=== PATIENT | female | born 1940 | race Caucasian/White ===

== ENCOUNTER 2018-07-28 19:41 | Emergency (ER) | payer OTHER, MEDICARE ==
[2018-07-28 19:59] VITALS: TEMP 97.8; BMI 30.7
[2018-07-28] MEDS ORDERED: METOCLOPRAMIDE HCL INJECTION 10 MG/2 ML VIAL IVPUSH ONE (20:22)
[2018-07-28] MEDS ORDERED: ACETAMINOPHEN 325 MG TABLET (FP) PO ONE (20:22)
[2018-07-28] MEDS ORDERED: SODIUM CHLORIDE 500 ML IV STA (20:22)
[2018-07-28] MEDS ORDERED: ACETAMINOPHEN 325 MG TABLET (FP) ONE (20:30)
[2018-07-28] MEDS ORDERED: METOCLOPRAMIDE HCL INJECTION 10 MG/2 ML VIAL ONE (20:31)
[2018-07-28 20:59] LABS: BASO % 0.5 % (0-2.0); EOS % 1.6 % (0-4.5); HEMATOCRIT 36.4 % (32.4-45.2); HEMOGLOBIN 12.2 GM/dl (10.7-15.3); LYMPH % 28.6 % (8-40); MCH 28.9 pg (25.7-33.7); MCHC 33.5 g/dl (32.0-36.0); MEAN CELL VOLUME 86.4 fl (80-96); MEAN PLT VOLUME 7.3 fl (7.5-11.1); MONO % 7.8 % (3.8-10.2); NEUT % 61.5 % (42.8-82.8); PLATELET COUNT 141 K/MM3 (134-434); RBC 4.21 M/mm3 (3.60-5.2); RDW 14.6 % (11.6-15.6); WHITE BLOOD COUNT 5.6 K/mm3 (4.0-10.8)
[2018-07-28 21:14] LABS: ACTIVATED PTT 28.2 SECONDS (25.2-36.5)
[2018-07-28 21:17] LABS: ALK PHOS 104 U/L (45-117); ANION GAP 5 MMOL/L (8-16); BLOOD UREA NITROGEN 20 mg/dl (7-18); CALCIUM 8.7 mg/dl (8.5-10); CHLORIDE 105 mmol/L (98-107); CO2 26 mmol/L (21-32); CREATININE 0.7 mg/dl (0.55-1.3); GLUCOSE,RANDOM 137 mg/dl (74-106); POTASSIUM 4.2 mmol/L (3.5-5.1); SGOT/AST 18 U/L (15-37); SGPT/ALT 8 U/L (13-61); SODIUM 136 mmol/L (136-145); TOT PROT 6.6 g/dl (6.4-8.2)
[2018-07-28 21:18] LABS: BILIRUBIN,TOTAL < 0.3 mg/dl (0.2-1)
[2018-07-28 21:19] LABS: INR 1.03 (0.82-1.09); PROTHROMBIN TIME (PATIENT) 11.5 SEC (10.2-13.0)
[2018-07-28 23:01] LABS: PH,URINE 5.5 (4.5-8); URINE APPEARANCE Clear; URINE BILIRUBIN Negative (NEGATIVE); URINE COLOR Yellow; URINE GLUCOSE (UA) Negative (NEGATIVE); URINE KETONE Negative (NEGATIVE); URINE LEUK ESTERASE TRACE (NEGATIVE); URINE NITRITE Negative (NEGATIVE); URINE PROTEIN Negative (NEGATIVE); URINE UROBILINOGEN 0.2 (0.2-1.0)
[2018-07-28 23:05] LABS: EPI CELLS NONE SEEN /HPF; URINE BACTERIA NONE SEEN /hpf (NEGATIVE); URINE RBC 0-2 /hpf (0-3)
--- NOTE | 2018-07-28 23:06 | PDOC ---
History of Present Illness - General History Source: Family Exam Limitations: Language Barrier (the daughter was translating due to a language barrier) - History of Present Illness Initial Comments: 07/28/18 23:16 The patient is a 78 year old female, with a significant past medical history of occasional falls and hypothyroidism (on medication) who presents to the emergency department with ecchymosis of the eyes. As per daughter, the patient fell around Friday/Friday. The patient is not a good historian, however, the patient states she has a headache, nausea, clear rhinorrhea, and has vomited this morning. As per daughter, she saw the right eye ecchymosis yesterday which has now spread to her left eye and nose. As per daughter, the patient has a history of staying up all night and sleeping throughout the day. As per daughter , the patient lives with her 2 sons and is in the process of getting her room renovated, and has boxes around her room causing her to fall. As per daughter, the patient went to [facility] today and was recommended to come to the ED for further evaluation and a CAT scan. The patient denies chest pain or shortness of breath. The patient denies fever, chills, diarrhea or constipation. The patient denies dysuria, frequency, urgency or hematuria. Allergies: NKDA Past surgical history: Knee replacement surgery Social history: None reported <Princess Dean - Last Filed: 07/28/18 23:15> <Ayleen Winslow - Last Filed: 07/28/18 23:23> - General Chief Complaint: Injury Stated Complaint: ECCHYMOSIS AND SWELLING TO FACE Time Seen by Provider: 07/28/18 20:13 Past History <Princess Dean - Last Filed: 07/28/18 23:15> - Past Medical History COPD: No HTN: Yes Thyroid Disease: Yes Other medical history: INSOMNIA, - Surgical History Appendectomy: Yes - Suicide/Smoking/Psychosocial Hx Smoking History: Never smoked Information on smoking cessation initiated: No Hx Alcohol Use: No Drug/Substance Use Hx: No <Ayleen Winslow - Last Filed: 07/28/18 23:23> - Past Medical History Allergies/Adverse Reactions: Allergies Allergy/AdvReac Type Severity Reaction Status Date / Time No Known Allergies Allergy Unverified 07/28/18 19:43 Home Medications: Ambulatory Orders Hydrochlorothiazide [Hctz -] 12.5 mg PO DAILY 07/28/18 Methimazole 5 mg PO DAILY 07/28/18 Metoprolol Succinate [Toprol Xl] 50 mg PO DAILY 07/28/18 Risperidone [Risperdal] 0.25 mg PO HS 07/28/18 Review of Systems - Review of Systems Able to Perform ROS?: Yes Comments:: 07/28/18 23:16 See HPI. All other systems reviewed and unremarkable All Other Systems: Reviewed and Negative <Princess Dean - Last Filed: 07/28/18 23:15> *Physical Exam - Vital Signs Last Vital Signs Temp Pulse Resp BP Pulse Ox 97.8 F 80 16 162/86 100 07/28/18 19:43 07/28/18 19:43 07/28/18 19:43 07/28/18 19:43 07/28/18 19:43 - Physical Exam Comments: 07/28/18 23:17 NAD (+) Bilateral eye bruise and left arm bruise. EOMI, DOMINGO MMM, OP WNL NCAT, no midline cervical tenderness RRR, nl s1/s2, no m/r/g CTABL, no w/r/r Soft, NTND (+) chronic lower extremity edema. WWP, gait, balance WNL, speech fluent, difficulties w/ multi-step commands and does not answer questions well, seems pleaseantly demented. Moving all 4, strength intact, CN intact. A&O x 1, mood/affect WNL. <Princess Dean - Last Filed: 07/28/18 23:15> - Vital Signs Last Vital Signs Temp Pulse Resp BP Pulse Ox 97.8 F 80 16 162/86 100 07/28/18 19:43 07/28/18 19:43 07/28/18 19:43 07/28/18 19:43 07/28/18 19:43 <Ayleen Winslow - Last Filed: 07/28/18 23:23> Moderate Sedation - Procedure Monitoring Vital Signs: Procedure Monitoring Vital Signs Temperature 97.8 F 07/28/18 19:43 Pulse Rate 80 07/28/18 19:43 Respiratory Rate 16 07/28/18 19:43 Blood Pressure 162/86 07/28/18 19:43 O2 Sat by Pulse Oximetry (%) 100 07/28/18 19:43 <Princess Dean - Last Filed: 07/28/18 23:15> - Procedure Monitoring Vital Signs: Procedure Monitoring Vital Signs Temperature 97.8 F 07/28/18 19:43 Pulse Rate 80 07/28/18 19:43 Respiratory Rate 16 07/28/18 19:43 Blood Pressure 162/86 07/28/18 19:43 O2 Sat by Pulse Oximetry (%) 100 07/28/18 19:43 <LondongracielaAyleen - Last Filed: 07/28/18 23:23> ED Treatment Course - LABORATORY CBC & Chemistry Diagram: 07/28/18 20:45 07/28/18 20:45 - ADDITIONAL ORDERS Additional order review: Laboratory Results 07/28/18 07/28/18 07/28/18 22:50 20:54 20:45 PT with INR INR PTT (Actin FS) Sodium Potassium Chloride Carbon Dioxide Anion Gap BUN Creatinine Creat Clearance w eGFR POC Glucometer 142 Random Glucose Calcium Total Bilirubin AST ALT Alkaline Phosphatase Creatine Kinase Troponin I < 0.03 Total Protein Albumin Urine Color Yellow Urine Appearance Clear Urine pH 5.5 Ur Specific [place] 1.020 Urine Protein Negative Urine Glucose (UA) Negative Urine Ketones Negative Urine Blood Negative Urine Nitrite Negative Urine Bilirubin Negative Urine Urobilinogen 0.2 Ur Leukocyte Esterase Trace H Urine RBC 0-2 Urine WBC 2-3 Ur Epithelial Cells None seen Urine Bacteria None seen 07/28/18 07/28/18 20:45 20:45 PT with INR 11.5 INR 1.03 PTT (Actin FS) 28.2 Sodium 136 Potassium 4.2 Chloride 105 Carbon Dioxide 26 Anion Gap 5 L BUN 20 H Creatinine 0.7 Creat Clearance w eGFR > 60 POC Glucometer Random Glucose 137 H Calcium 8.7 Total Bilirubin < 0.3 AST 18 ALT 8 L Alkaline Phosphatase 104 Creatine Kinase 136 Troponin I Total Protein 6.6 Albumin 4.0 Urine Color Urine Appearance Urine pH Ur Specific Jupiter Urine Protein Urine Glucose (UA) Urine Ketones Urine Blood Urine Nitrite Urine Bilirubin Urine Urobilinogen Ur Leukocyte Esterase Urine RBC Urine WBC Ur Epithelial Cells Urine Bacteria 07/28/18 07/28/18 20:54 20:45 RBC 4.21 MCV 86.4 MCHC 33.5 RDW 14.6 MPV 7.3 L Neutrophils % 61.5 Lymphocytes % 28.6 Monocytes % 7.8 Eosinophils % 1.6 Basophils % 0.5 POC Glucometer 142 - Medications Given in the ED: ED Medications Discontinued Medications Generic Name Dose Route Start Last Admin Trade Name Weston PRN Reason Stop Dose Admin Acetaminophen 650 mg 07/28/18 20:22 07/28/18 20:45 Tylenol - PO 07/28/18 20:23 650 mg ONCE ONE Administration Sodium Chloride 500 mls @ 500 mls/hr 07/28/18 20:22 07/28/18 20:40 Normal Saline - IV 07/28/18 21:21 500 mls/hr ASDIR STA Administration Metoclopramide HCl 10 mg 07/28/18 20:22 07/28/18 20:43 Reglan Injection - IVPUSH 07/28/18 20:23 10 mg ONCE ONE Administration <Princess Dean - Last Filed: 07/28/18 23:15> - LABORATORY CBC & Chemistry Diagram: 07/28/18 20:45 07/28/18 20:45 - ADDITIONAL ORDERS Additional order review: Laboratory Results 07/28/18 07/28/18 07/28/18 22:50 20:54 20:45 PT with INR INR PTT (Actin FS) Sodium Potassium Chloride Carbon Dioxide Anion Gap BUN Creatinine Creat Clearance w eGFR POC Glucometer 142 Random Glucose Calcium Total Bilirubin AST ALT Alkaline Phosphatase Creatine Kinase Troponin I < 0.03 Total Protein Albumin Urine Color Yellow Urine Appearance Clear Urine pH 5.5 Ur Specific [place] 1.020 Urine Protein Negative Urine Glucose (UA) Negative Urine Ketones Negative Urine Blood Negative Urine Nitrite Negative Urine Bilirubin Negative Urine Urobilinogen 0.2 Ur Leukocyte Esterase Trace H 07/28/18 07/28/18 20:45 20:45 PT with INR 11.5 INR 1.03 PTT (Actin FS) 28.2 Sodium 136 Potassium 4.2 Chloride 105 Carbon Dioxide 26 Anion Gap 5 L BUN 20 H Creatinine 0.7 Creat Clearance w eGFR > 60 POC Glucometer Random Glucose 137 H Calcium 8.7 Total Bilirubin < 0.3 AST 18 ALT 8 L Alkaline Phosphatase 104 Creatine Kinase 136 Troponin I Total Protein 6.6 Albumin 4.0 Urine Color Urine Appearance Urine pH Ur Specific [place] Urine Protein Urine Glucose (UA) Urine Ketones Urine Blood Urine Nitrite Urine Bilirubin Urine Urobilinogen Ur Leukocyte Esterase 07/28/18 07/28/18 20:54 20:45 RBC 4.21 MCV 86.4 MCHC 33.5 RDW 14.6 MPV 7.3 L Neutrophils % 61.5 Lymphocytes % 28.6 Monocytes % 7.8 Eosinophils % 1.6 Basophils % 0.5 POC Glucometer 142 - RADIOLOGY Radiology Studies Ordered: Category Date Time Status FACIAL BONES CT W/O CONTRAST [CT] Stat CT Scan 07/28/18 20:[address] WITHOUT CONTRAST [CT] Stat CT Scan 07/28/18 20:18 Completed CHEST PA & LAT [RAD] Stat Radiology 07/28/18 20:19 Taken - Medications Given in the ED: ED Medications Discontinued Medications Generic Name Dose Route Start Last Admin Trade Name Freq PRN Reason Stop Dose Admin Acetaminophen 650 mg 07/28/18 20:22 07/28/18 20:45 Tylenol - PO 07/28/18 20:23 650 mg ONCE ONE Administration Sodium Chloride 500 mls @ 500 mls/hr 07/28/18 20:22 07/28/18 20:40 Normal Saline - IV 07/28/18 21:21 500 mls/hr ASDIR STA Administration Metoclopramide HCl 10 mg 07/28/18 20:22 07/28/18 20:43 Reglan Injection - IVPUSH 07/28/18 20:23 10 mg ONCE ONE Administration - Consult/PCP Case Discussed with Personal Care Physician Not on Staff:: Dr. Jimmy Elder , . PMD states that description of pt today (A&O x 1, not following multi-step commands well, etc) is a significant change from her baseline just a few months ago and he was unaware of pt's changes in behavior over past few months. Will check with family tomorrow and arrange neurology and close f/u in his office. Asked that we fax results to him at [phone] <Ayleen Winslow - Last Filed: 07/28/18 23:23> Medical Decision Making - Medical Decision Making 07/28/18 21:02 78yoF w/ fall at home, on history pt w/ very poor sleep habits x few months, started on Risperidal by a new neurologist without improvement. On evaluation, pt is awake, alert, pleaseant but only oriented x 1. Family with significant "covering" behavior, often answers questions for her, leading her. Large family , lots of social support, has outpatient f/u. - labs - ua - cth/maxface - ekg - ivf - d/w PMD - possible admit if abnormalities noted. 07/28/18 23:04 labs all unrearmakble. UA w/ tr LE, no other abnormalitisl CXR clear CTH and maxface unremarkable pt well appearing. <Ayleen Winslow - Last Filed: 07/28/18 23:23> *DC/Admit/Observation/Transfer - Attestations Scribe Attestion: 07/28/18 23:17 Documentation prepared by Princess Dean, acting as paramedical aide for Ayleen Winslow MD, MD <Princess Dean - Last Filed: 07/28/18 23:15> <Ayleen Winslow - Last Filed: 07/28/18 23:23> Diagnosis at time of Disposition: Fall - Discharge Dispostion Condition at time of disposition: Stable - Patient Instructions Additional Instructions: Follow-up within the next few days with Dr. Sanchez. return to ER for Fever over 100.4 recurrent falling
[2018-07-28 23:31] VITALS: BP 180/75; PULSE 82
--- NOTE | 2018-07-29 10:21 | EKG ---
Test Reason : Blood Pressure : / mmHG Vent. Rate : 084 BPM Atrial Rate : 084 BPM P-R Int : 166 ms QRS Dur : 072 ms QT Int : 390 ms P-R-T Axes : 058 020 024 degrees QTc Int : 460 ms NORMAL SINUS RHYTHM POSSIBLE LEFT ATRIAL ENLARGEMENT BORDERLINE ECG NO PREVIOUS ECGS AVAILABLE Confirmed by JULIÁN IRELAND, JOHN ([id number]) on 07/29/2018 10:21:27 AM Referred By: DR GUNTER Confirmed By:JOHN GALLEGO MD
== END 2018-07-28 23:31 | disposition home or self-care (01) ==
LOC: FER 19:41
PROC: 3E033GC Introduction of Other Therapeutic Substance into Peripheral Vein, Percutaneous Approach (ICD-10-PCS; principal; 2018-07-28)
PROC: 3E0337Z Introduction of Electrolytic and Water Balance Substance into Peripheral Vein, Percutaneous Approach (ICD-10-PCS; 2018-07-28)
DX: S00.10XA Contusion of unspecified eyelid and periocular area, initial encounter (principal); W18.39XA Other fall on same level, initial encounter; Y93.89 Activity, other specified; Y92.092 Bedroom in other non-institutional residence as the place of occurrence of the external cause; E03.9 Hypothyroidism, unspecified; Z91.81 History of falling; I10 Essential (primary) hypertension
CPT/HCPCS: 36415; 70450-TC; 70486-TC; 71046-TC-FY; 80053; 81003; 81015; 82550; 82962; 84484; 85025; 85610; 85730; 93005; 96374; 99282-25

== ENCOUNTER 2021-02-17 19:08 | Emergency (ER) | payer MEDICARE, OTHER ==
[2021-02-17 19:47] VITALS: BP 126/80; PULSE 88; TEMP 98.7; BMI 29.9
== END 2021-02-17 20:36 | disposition home or self-care (01) ==
LOC: FER 19:08
DX: S00.03XA Contusion of scalp, initial encounter (principal); W01.0XXA Fall on same level from slipping, tripping and stumbling without subsequent striking against object, initial encounter; Y92.000 Kitchen of unspecified non-institutional (private) residence as the place of occurrence of the external cause
CPT/HCPCS: 70450-TC; 72125-TC; 99284-25

== ENCOUNTER 2021-03-14 10:47 | Emergency (ER) | payer OTHER, MEDICARE ==
[2021-03-14 10:56] VITALS: BP 151/67; PULSE 88; TEMP 98; BMI 29.9
== END 2021-03-14 12:21 | disposition home or self-care (01) ==
LOC: FER 10:47
DX: S00.91XA Abrasion of unspecified part of head, initial encounter (principal); W19.XXXA Unspecified fall, initial encounter; Y92.9 Unspecified place or not applicable
CPT/HCPCS: 70450-TC; 72125-TC; 99284-25

== ENCOUNTER 2022-11-29 18:15 | Emergency (ER) | payer OTHER, MEDICARE ==
[2022-11-29 18:57] VITALS: BP 120/71; PULSE 70; RESP 20; TEMP 97.9; BMI 24.7
[2022-11-29] MEDS ORDERED: ALPRAZolam 1 MG TABLET PO PRN (19:33)
[2022-11-29] MEDS ORDERED: ALPRAZolam 0.25 MG TABLET ONE (20:31)
[2022-11-29] MEDS ORDERED: LIDOCAINE HCL 1%, 10 MG/ML (20ML VIAL) ONE (22:38)
== END 2022-11-29 23:18 | disposition home or self-care (01) ==
LOC: FER 18:15
DX: S63.287A Dislocation of proximal interphalangeal joint of left little finger, initial encounter (principal); X58.XXXA Exposure to other specified factors, initial encounter
CPT/HCPCS: 73140-TC-LT-FY; 99283-25

== ENCOUNTER 2023-01-21 19:56 | Emergency (ER) | payer OTHER, MEDICARE ==
[2023-01-21 20:20] VITALS: TEMP 97.8; BMI 25.6
[2023-01-21 20:38] LABS: HEMATOCRIT 30.3 % (32.4-45.2); HEMOGLOBIN 10.1 G/dL (10.7-15.3); MCH 29.9 pg (25.7-33.7); MCHC 33.2 g/dl (32.0-36.0); MEAN CELL VOLUME 89.8 fl (80-96); MEAN PLT VOLUME 9.1 fl (7.5-11.1); PLATELET COUNT 107.7 10^3/uL (134-434); RBC 3.37 10^6/uL (3.60-5.2); RDW 16.1 % (11.6-15.6); WHITE BLOOD COUNT 9.2 10^3/uL (4.0-10.8)
[2023-01-21 21:01] LABS: ALBUMIN 3.8 g/dl (3.4-5.0); BLOOD UREA NITROGEN 20.3 mg/dl (7-18); CALCIUM 8.8 mg/dl (8.5-10.1); CREATININE 0.6 mg/dl (0.6-1.3); POTASSIUM 4.2 mmol/L (3.5-5.1); SGOT/AST 22.2 U/L (15-37); SGPT/ALT 8.2 U/L (7-52); TOT PROT 6.1 g/dl (6.4-8.2)
[2023-01-21 21:27] LABS: PLATELET ESTIMATE ADEQUATE
[2023-01-21 21:38] LABS: EPITHELIAL CELLS FEW /hpf
[2023-01-21 22:38] LABS: BILIRUBIN,TOTAL 0.4 mg/dL (0.2-1)
[2023-01-22 01:48] VITALS: BP 154/83
[2023-01-22 01:59] VITALS: PULSE 78; RESP 16
== END 2023-01-22 02:03 | disposition short-term general hospital (02) ==
LOC: FER 19:56
DX: I62.00 Nontraumatic subdural hemorrhage, unspecified (principal); R53.1 Weakness; Z20.822 Contact with and (suspected) exposure to COVID-19
CPT/HCPCS: 0241U-QW; 36415; 70450-TC; 71045-TC-FY; 80053; 81003; 81015; 82550; 82553; 83605; 84484; 85027; 87086; 93005; 99285-25

== ENCOUNTER 2023-06-19 12:54 | Inpatient (IN) | payer OTHER, MEDICARE ==
[2023-06-19 13:14] VITALS: BMI 23.2
[2023-06-19 14:16] LABS: VENOUS BASE EXCESS 1.7 mmol/L (-2-2); VENOUS O2 SATURATION 51.5 % (70-80); VENOUS PCO2 45.9 mmHg (38-52); VENOUS PH 7.389 (7.310-7.410)
[2023-06-19] MEDS: SODIUM CHLORIDE 500 ML IV STA (14:18)
[2023-06-19 14:33] LABS: BASO % 0.2 % (0-2.0); EOS % 0.1 % (0-4.5); HEMATOCRIT 31.6 % (32.4-45.2); HEMOGLOBIN 10.4 GM/dL (10.7-15.3); LYMPH % 15.3 % (8-40); MCH 27.7 pg (25.7-33.7); MCHC 32.8 g/dl (32.0-36.0); MEAN CELL VOLUME 84.5 fl (80-96); MEAN PLT VOLUME 7.7 fl (7.5-11.1); MONO % 8.4 % (3.8-10.2); PLATELET COUNT 75 10^3/uL (134-434); RBC 3.74 M/mm3 (3.60-5.2); RDW 17.8 % (11.6-15.6); WHITE BLOOD COUNT 6.2 K/mm3 (4.0-10.0)
[2023-06-19 14:35] LABS: INR 1.14 (0.83-1.09); PROTHROMBIN TIME (PATIENT) 13.2 SEC (9.7-13.0)
[2023-06-19 14:37] LABS: POTASSIUM 3.7 mmol/L (3.5-5.1)
[2023-06-19 14:38] LABS: ACTIVATED PTT 32.1 SECONDS (25.2-36.5)
[2023-06-19 14:40] LABS: CALCIUM 8.5 mg/dL (8.5-10.1)
[2023-06-19 14:41] LABS: ALBUMIN 3.2 g/dl (3.4-5.0)
[2023-06-19 14:43] LABS: BILIRUBIN,TOTAL 0.4 mg/dL (0.2-1)
[2023-06-19 14:44] LABS: CREATININE 0.8 mg/dL (0.55-1.3); TOT PROT 6.6 g/dl (6.4-8.2)
[2023-06-19 18:15] LABS: EPI CELLS 8 /uL (0-25.1); HYALINE CASTS 0 /uL (0-3.1); URINE APPEARANCE CLEAR; URINE BACTERIA 10 /uL (0-1359); URINE BILIRUBIN NEGATIVE (NEGATIVE); URINE COLOR YELLOW; URINE GLUCOSE (UA) NEGATIVE (NEGATIVE); URINE KETONE NEGATIVE (NEGATIVE); URINE LEUK ESTERASE NEGATIVE (NEGATIVE); URINE NITRITE NEGATIVE (NEGATIVE); URINE PROTEIN 1+ (NEGATIVE); URINE UROBILINOGEN 0.2 mg/dL (0.2-1.0); URINE WBC 38 /uL (0-25.8)
[2023-06-19 19:29] LABS: URINE RBC 74.8 /uL (0-23.9)
[2023-06-19] MEDS: ACETAMINOPHEN 1000 MG/100 ML BAG IVPB ONE (21:46)
[2023-06-20] MEDS ORDERED: ACETAMINOPHEN 325 MG TABLET (FP) PO PRN (00:25)
[2023-06-20 09:05] LABS: BASO % 0.3 % (0-2.0); HEMATOCRIT 31.1 % (32.4-45.2); HEMOGLOBIN 10.3 GM/dL (10.7-15.3); LYMPH % 19.5 % (8-40); MCH 27.7 pg (25.7-33.7); MCHC 32.9 g/dl (32.0-36.0); MEAN CELL VOLUME 84.2 fl (80-96); MEAN PLT VOLUME 7.6 fl (7.5-11.1); MONO % 7.7 % (3.8-10.2); NEUT % 72.5 % (42.8-82.8); PLATELET COUNT 71 10^3/uL (134-434); RDW 17.7 % (11.6-15.6); WHITE BLOOD COUNT 4.6 K/mm3 (4.0-10.0)
[2023-06-20 09:25] LABS: POTASSIUM 3.6 mmol/L (3.5-5.1)
[2023-06-20 09:30] LABS: BLOOD UREA NITROGEN 21.7 mg/dL (7-18)
[2023-06-20 09:31] LABS: ALBUMIN 3.2 g/dl (3.4-5.0); CALCIUM 8.2 mg/dL (8.5-10.1); MAGNESIUM 2.4 mg/dL (1.8-2.4)
[2023-06-20 09:33] LABS: CREATININE 0.6 mg/dL (0.55-1.3); PHOSPHOROUS 3.7 mg/dL (2.5-4.9)
[2023-06-20 09:35] LABS: BILIRUBIN,TOTAL 0.5 mg/dL (0.2-1); TOT PROT 6.2 g/dl (6.4-8.2)
[2023-06-20] MEDS: ENOXAPARIN NA (PORCINE) 40 MG/0.4 ML DISP.SYRIN SQ SCH (10:02)
[2023-06-20] MEDS: FUROSEMIDE 20 MG TABLET (FP) PO SCH (10:03)
[2023-06-20] MEDS: OSELTAMIVIR PHOSPHATE 75 MG CAPSULE PO SCH (10:03)
[2023-06-20] MEDS: amLODIPine BESYLATE 10 MG TABLET (FP) PO SCH (10:03)
[2023-06-20] MEDS: METHIMAZOLE 5 MG TABLET PO SCH (15:27)
[2023-06-20] MEDS: ATORVASTATIN CA 40 MG TABLET (FP) PO SCH (21:49)
[2023-06-20] MEDS: MIRTAZAPINE 15 MG TABLET (FP) PO SCH (21:49)
[2023-06-21 08:10] LABS: BASO % 0.4 % (0-2.0); HEMATOCRIT 30.9 % (32.4-45.2); HEMOGLOBIN 10.6 GM/dL (10.7-15.3); LYMPH % 28.3 % (8-40); MCH 28.5 pg (25.7-33.7); MCHC 34.3 g/dl (32.0-36.0); MEAN CELL VOLUME 83.1 fl (80-96); MEAN PLT VOLUME 7.8 fl (7.5-11.1); MONO % 8.2 % (3.8-10.2); NEUT % 63.1 % (42.8-82.8); PLATELET COUNT 77 10^3/uL (134-434); RBC 3.71 M/mm3 (3.60-5.2); RDW 17.4 % (11.6-15.6); WHITE BLOOD COUNT 4.1 K/mm3 (4.0-10.0)
[2023-06-21 08:26] LABS: POTASSIUM 3.5 mmol/L (3.5-5.1)
[2023-06-21 08:28] LABS: CALCIUM 8.3 mg/dL (8.5-10.1)
[2023-06-21 08:29] LABS: BLOOD UREA NITROGEN 17.6 mg/dL (7-18); MAGNESIUM 2.1 mg/dL (1.8-2.4)
[2023-06-21 08:32] LABS: CREATININE 0.6 mg/dL (0.55-1.3)
[2023-06-21 08:33] LABS: TOT PROT 6.4 g/dl (6.4-8.2)
[2023-06-21 08:34] LABS: BILIRUBIN,TOTAL 0.4 mg/dL (0.2-1)
[2023-06-21] MEDS: LACTATED RINGERS SOLUTION 500 ML IV SCH (11:00)
[2023-06-22] MEDS: LACTATED RINGERS SOLUTION 1,000 ML/1,000 ML INFUS.BAG IV ONE (07:11)
[2023-06-22 08:36] LABS: BASO % 0.2 % (0-2.0); HEMATOCRIT 30.7 % (32.4-45.2); HEMOGLOBIN 10.2 GM/dL (10.7-15.3); MCH 27.9 pg (25.7-33.7); MCHC 33.3 g/dl (32.0-36.0); MEAN CELL VOLUME 83.5 fl (80-96); MEAN PLT VOLUME 7.6 fl (7.5-11.1); MONO % 7.5 % (3.8-10.2); NEUT % 68.3 % (42.8-82.8); PLATELET COUNT 79 10^3/uL (134-434); RBC 3.68 M/mm3 (3.60-5.2); RDW 17.5 % (11.6-15.6); WHITE BLOOD COUNT 4.6 K/mm3 (4.0-10.0)
[2023-06-22 08:50] LABS: POTASSIUM 3.5 mmol/L (3.5-5.1)
[2023-06-22 08:55] LABS: ALBUMIN 2.9 g/dl (3.4-5.0); BLOOD UREA NITROGEN 23.9 mg/dL (7-18); CALCIUM 8.4 mg/dL (8.5-10.1); MAGNESIUM 2.1 mg/dL (1.8-2.4)
[2023-06-22 08:58] LABS: CREATININE 0.6 mg/dL (0.55-1.3)
[2023-06-22 08:59] LABS: BILIRUBIN,TOTAL 0.4 mg/dL (0.2-1); TOT PROT 6.1 g/dl (6.4-8.2)
[2023-06-22] MEDS: PIPERACILLIN/TAZOB 2.25 GM 2.25 GM in DEXTROSE 5%-WATER - 50 ML IVPB SCH ×2 (10:32→15:17)
[2023-06-23 09:19] LABS: BASO % 0.1 % (0-2.0); HEMATOCRIT 30.7 % (32.4-45.2); HEMOGLOBIN 10.3 GM/dL (10.7-15.3); LYMPH % 22.6 % (8-40); MCH 27.9 pg (25.7-33.7); MCHC 33.4 g/dl (32.0-36.0); MEAN CELL VOLUME 83.4 fl (80-96); MEAN PLT VOLUME 7.9 fl (7.5-11.1); MONO % 7.7 % (3.8-10.2); NEUT % 69.6 % (42.8-82.8); PLATELET COUNT 85 10^3/uL (134-434); RBC 3.68 M/mm3 (3.60-5.2); RDW 17.5 % (11.6-15.6); WHITE BLOOD COUNT 5.8 K/mm3 (4.0-10.0)
[2023-06-23 09:29] LABS: POTASSIUM 3.7 mmol/L (3.5-5.1)
[2023-06-23 09:32] LABS: ALBUMIN 3.1 g/dl (3.4-5.0); BLOOD UREA NITROGEN 20.8 mg/dL (7-18); CALCIUM 8.4 mg/dL (8.5-10.1); MAGNESIUM 2.2 mg/dL (1.8-2.4)
[2023-06-23 09:35] LABS: CREATININE 0.7 mg/dL (0.55-1.3)
[2023-06-23 09:37] LABS: BILIRUBIN,TOTAL 0.5 mg/dL (0.2-1); TOT PROT 6.2 g/dl (6.4-8.2)
[2023-06-25] MEDS: ALBUTEROL SO4 2.5/IPRATROPIUM 0.5 INH SOL 3 ML VIAL.NEB. NEB SCH (15:58)
[2023-06-26 08:55] LABS: BASO % 0.4 % (0-2.0); EOS % 0.1 % (0-4.5); HEMATOCRIT 29.9 % (32.4-45.2); HEMOGLOBIN 10.1 GM/dL (10.7-15.3); LYMPH % 23.2 % (8-40); MCHC 33.7 g/dl (32.0-36.0); MEAN PLT VOLUME 7.8 fl (7.5-11.1); MONO % 7.1 % (3.8-10.2); NEUT % 69.2 % (42.8-82.8); PLATELET COUNT 109 10^3/uL (134-434); RDW 17.4 % (11.6-15.6); WHITE BLOOD COUNT 7.3 K/mm3 (4.0-10.0)
[2023-06-26 09:06] LABS: POTASSIUM 3.9 mmol/L (3.5-5.1)
[2023-06-26 09:09] LABS: BLOOD UREA NITROGEN 25.4 mg/dL (7-18); CALCIUM 8.9 mg/dL (8.5-10.1)
[2023-06-26 09:13] LABS: CREATININE 0.7 mg/dL (0.55-1.3)
[2023-06-26] MEDS ORDERED: guaiFENesin/CODEINE 10 ML UNIT-DOSE CUPS PO PRN (12:30)
[2023-06-26] MEDS ORDERED: guaiFENesin 200 MG/10 ML 10 ML UNIT-DOSE CUPS PO PRN (12:31)
[2023-06-28 00:07] VITALS: RESP 18
[2023-06-28 08:46] VITALS: TEMP 97.6
[2023-06-28 12:34] VITALS: BP 113/49; PULSE 93
== END 2023-06-28 12:37 | DRG 194 ==
LOC: JER 12:54 → JERBED 15:48 → J4S 20:33
PROVIDERS: ADMIT Internal Medicine; ATTEND Nurse Practitioner
DX: J10.1 Influenza due to other identified influenza virus with other respiratory manifestations (principal); N39.0 Urinary tract infection, site not specified; F03.90 Unspecified dementia, unspecified severity, without behavioral disturbance, psychotic disturbance, mood disturbance, and anxiety; I10 Essential (primary) hypertension; E78.5 Hyperlipidemia, unspecified; E03.9 Hypothyroidism, unspecified; B96.20 Unspecified Escherichia coli [E. coli] as the cause of diseases classified elsewhere
CPT/HCPCS: 0241U-QW; 36415; 71045-TC-FY; 80048; 80053; 81003; 82803; 83605; 83735; 84100; 84484; 85025; 85610; 85730; 86850; 86900; 86901; 87040; 87086; 87186; 87635; 93005; 93010; 94640; 97161-GP; 99285-25; J0131

== ENCOUNTER 2023-10-02 13:12 | Inpatient (IN) | payer OTHER, MEDICARE ==
[2023-10-02 15:19] LABS: BASO % 0.6 % (0-2.0); EOS % 0.1 % (0-4.5); HEMATOCRIT 34.2 % (32.4-45.2); HEMOGLOBIN 11.7 GM/dL (10.7-15.3); LYMPH % 32.3 % (8-40); MCH 28.6 pg (25.7-33.7); MCHC 34.2 g/dl (32.0-36.0); MEAN CELL VOLUME 83.7 fl (80-96); MEAN PLT VOLUME 7.6 fl (7.5-11.1); MONO % 8.5 % (3.8-10.2); NEUT % 58.5 % (42.8-82.8); PLATELET COUNT 111 10^3/uL (134-434); RBC 4.09 M/mm3 (3.60-5.2); RDW 17.2 % (11.6-15.6); WHITE BLOOD COUNT 4.6 K/mm3 (4.0-10.0)
[2023-10-02 15:33] LABS: POTASSIUM 4.9 mmol/L (3.5-5.1)
[2023-10-02 15:36] LABS: ALBUMIN 3.2 g/dl (3.4-5.0); BLOOD UREA NITROGEN 24.7 mg/dL (7-18)
[2023-10-02 15:39] LABS: CREATININE 0.6 mg/dL (0.55-1.3)
[2023-10-02 15:41] LABS: BILIRUBIN,TOTAL 0.4 mg/dL (0.2-1); TOT PROT 6.2 g/dl (6.4-8.2)
[2023-10-02] MEDS: MIDAZOLAM HCL 2 MG/2 ML SINGLE DOSE VIAL IVPUSH ONE (20:31)
[2023-10-02] MEDS ORDERED: PIPERACILLIN/TAZOB 3.375 GM 3.375 GM/50 ML BAG IVPB ONE (21:43)
[2023-10-02] MEDS: SODIUM CHLORIDE 1,000 ML IV SCH (22:07)
[2023-10-02] MEDS: VANCOMYCIN/WATER FOR INJ (PEG) 1,000 MG/200 ML BAG IVPB SCH (22:08)
[2023-10-02] MEDS: PIPERACILLIN/TAZOB 3.375 GM 3.375 GM in DEXTROSE 5%-WATER - 50 ML IVPB SCH (22:08)
[2023-10-02] MEDS ORDERED: VANCOMYCIN 1 GRAM (PRE-DOCKED) 1,000 MG/250 ML BAG IVPB ONE (22:09)
[2023-10-02] MEDS: VANCOMYCIN 1 GRAM (PRE-DOCKED) 1,000 MG/250 ML BAG IVPB SCH (22:16)
[2023-10-03] MEDS: ATORVASTATIN CA 40 MG TABLET (FP) PO SCH (00:54)
[2023-10-03] MEDS: ERTAPENEM SODIUM 1 GM in SODIUM CHLORIDE 50 ML IVPB SCH (01:12)
[2023-10-03] MEDS: PIPERACILLIN/TAZOB 3.375 GM 3.375 GM in DEXTROSE 5%-WATER - 50 ML IVPB SCH (09:46)
[2023-10-03] MEDS: VANCOMYCIN 1 GRAM (PRE-DOCKED) 1,000 MG/250 ML BAG IVPB SCH (09:46)
[2023-10-03 10:38] LABS: EPI CELLS 14 /uL (0-25.1); HYALINE CASTS 0 /uL (0-3.1); PH,URINE 7.5 (5.0-8.0); URINE APPEARANCE CLEAR; URINE BACTERIA 32 /uL (0-1359); URINE BILIRUBIN NEGATIVE (NEGATIVE); URINE COLOR YELLOW; URINE GLUCOSE (UA) NEGATIVE (NEGATIVE); URINE KETONE NEGATIVE (NEGATIVE); URINE LEUK ESTERASE 2+ (NEGATIVE); URINE NITRITE NEGATIVE (NEGATIVE); URINE PROTEIN NEGATIVE (NEGATIVE); URINE RBC 13 /uL (0-23.9); URINE UROBILINOGEN 0.2 mg/dL (0.2-1.0); URINE WBC 129 /uL (0-25.8)
[2023-10-03] MEDS: ENOXAPARIN NA (PORCINE) 40 MG/0.4 ML DISP.SYRIN SQ SCH (10:52)
[2023-10-03 11:38] LABS: BASO % 0.4 % (0-2.0); HEMATOCRIT 35.4 % (32.4-45.2); HEMOGLOBIN 11.9 GM/dL (10.7-15.3); LYMPH % 27.4 % (8-40); MCH 28.1 pg (25.7-33.7); MCHC 33.7 g/dl (32.0-36.0); MEAN CELL VOLUME 83.4 fl (80-96); MEAN PLT VOLUME 7.6 fl (7.5-11.1); MONO % 6.7 % (3.8-10.2); NEUT % 65.5 % (42.8-82.8); PLATELET COUNT 115 10^3/uL (134-434); RBC 4.25 M/mm3 (3.60-5.2); RDW 17.3 % (11.6-15.6); WHITE BLOOD COUNT 5.4 K/mm3 (4.0-10.0)
[2023-10-03 11:48] LABS: POTASSIUM 3.8 mmol/L (3.5-5.1)
[2023-10-03 11:51] LABS: ALBUMIN 3.6 g/dl (3.4-5.0); BLOOD UREA NITROGEN 15.6 mg/dL (7-18); CALCIUM 9.2 mg/dL (8.5-10.1); MAGNESIUM 2.2 mg/dL (1.8-2.4)
[2023-10-03 11:54] LABS: CREATININE 0.6 mg/dL (0.55-1.3); PHOSPHOROUS 3.2 mg/dL (2.5-4.9)
[2023-10-03 11:56] LABS: BILIRUBIN,TOTAL 0.5 mg/dL (0.2-1); TOT PROT 6.4 g/dl (6.4-8.2)
[2023-10-03 15:37] VITALS: BMI 26.3
[2023-10-03] MEDS ORDERED: ALBUTEROL SO4 2.5/IPRATROPIUM 0.5 INH SOL 3 ML VIAL.NEB. NEB PRN (16:15)
[2023-10-03] MEDS: MIRTAZAPINE 15 MG TABLET (FP) PO SCH (21:55)
[2023-10-04 08:36] LABS: HEMATOCRIT 29.3 % (32.4-45.2); HEMOGLOBIN 10.1 GM/dL (10.7-15.3); MCH 28.8 pg (25.7-33.7); MCHC 34.4 g/dl (32.0-36.0); MEAN CELL VOLUME 83.6 fl (80-96); MEAN PLT VOLUME 7.6 fl (7.5-11.1); PLATELET COUNT 103 10^3/uL (134-434); RBC 3.51 M/mm3 (3.60-5.2); RDW 17.2 % (11.6-15.6); WHITE BLOOD COUNT 4.8 K/mm3 (4.0-10.0)
[2023-10-04 08:52] LABS: POTASSIUM 3.5 mmol/L (3.5-5.1)
[2023-10-04 08:53] LABS: CALCIUM 8.4 mg/dL (8.5-10.1)
[2023-10-04 08:54] LABS: BLOOD UREA NITROGEN 14.8 mg/dL (7-18); MAGNESIUM 2.1 mg/dL (1.8-2.4)
[2023-10-04 08:57] LABS: CREATININE 0.6 mg/dL (0.55-1.3); PHOSPHOROUS 3.7 mg/dL (2.5-4.9)
[2023-10-04] MEDS: amLODIPine BESYLATE 10 MG TABLET (FP) PO SCH (10:09)
[2023-10-04] MEDS: METHIMAZOLE 5 MG TABLET PO SCH (10:09)
[2023-10-05 08:53] LABS: BASO % 0.6 % (0-2.0); EOS % 0.2 % (0-4.5); HEMATOCRIT 34.4 % (32.4-45.2); HEMOGLOBIN 11.6 GM/dL (10.7-15.3); LYMPH % 41.1 % (8-40); MCH 28.2 pg (25.7-33.7); MCHC 33.7 g/dl (32.0-36.0); MEAN CELL VOLUME 83.6 fl (80-96); MEAN PLT VOLUME 7.4 fl (7.5-11.1); MONO % 9.5 % (3.8-10.2); NEUT % 48.6 % (42.8-82.8); PLATELET COUNT 108 10^3/uL (134-434); RBC 4.12 M/mm3 (3.60-5.2); RDW 16.6 % (11.6-15.6); WHITE BLOOD COUNT 4.8 K/mm3 (4.0-10.0)
[2023-10-05 09:09] LABS: POTASSIUM 4.2 mmol/L (3.5-5.1)
[2023-10-05 09:11] LABS: BLOOD UREA NITROGEN 11.4 mg/dL (7-18); CALCIUM 8.7 mg/dL (8.5-10.1)
[2023-10-05 09:15] LABS: CREATININE 0.5 mg/dL (0.55-1.3)
[2023-10-06] MEDS: FUROSEMIDE 20 MG TABLET (FP) PO SCH (10:09)
[2023-10-07 16:08] VITALS: RESP 18
[2023-10-08 05:54] VITALS: TEMP 98.4
[2023-10-08 11:28] VITALS: BP 134/71; PULSE 78
== END 2023-10-08 11:30 | DRG 72 ==
LOC: JER 13:12 → JERBED 19:41 → J8W 23:01
PROVIDERS: ADMIT Internal Medicine; ATTEND Nurse Practitioner Family
DX: G93.41 Metabolic encephalopathy (principal); E03.9 Hypothyroidism, unspecified; E78.00 Pure hypercholesterolemia, unspecified; F03.90 Unspecified dementia, unspecified severity, without behavioral disturbance, psychotic disturbance, mood disturbance, and anxiety; I10 Essential (primary) hypertension; R53.83 Other fatigue
CPT/HCPCS: 0241U-QW; 36415; 70450-TC; 71045-TC-FY; 80048; 80053; 81003; 83735; 84100; 84443; 84484; 85025; 85027; 87040; 87086; 87635; 93005; 93010; 97161-GP; 99285-25